=== PATIENT | male | born 1950 | race Caucasian/White ===

== ENCOUNTER 2020-09-15 11:44 | Inpatient (IN) | payer MEDICARE, OTHER ==
[~2020-09-15] VITALS: Ht 182.9 cm; Wt 164.2 kg
[~2020-09-15 11:44] MED LIST: ACTOS30 MG PO; BACTRIM DS TAB1 EACH PO; BYSTOLIC10 MG PO; CLINDAMYCIN HC150 MG PO; DIOVAN HCT 3201 EACH PO; GLIMEPIRIDE4 MG PO; GLIPIZIDE5 MG; KOMBIGLYZE XR1 EAC2 PO; LEVP SQ; PEPCID20 MG PO; WARFARIN SODIUM10 MG PO; WARFARIN SODIUM5 MG PO; ZOCOR20 MG PO
[2020-09-15] MEDS ORDERED: ASPIRIN 81 MG CHEW TAB PO ONE (12:30)
[2020-09-15 12:47] LABS: BASOPHILS % 0.2 % (0.0-1.0); EOSINOPHILS % 0.1 % (0.0-6.0); HEMATOCRIT 41.7 % (38.2-49.6); HEMOGLOBIN 14.1 g/dL (14.0-18.0); LYMPHOCYTES # (AUTO) 0.7 (1.0-3.2); LYMPHOCYTES % 3.4 % (18.0-39.1); MEAN CORPUSCULAR HEMOGLOBIN 30.3 pg (28-32); MEAN CORPUSCULAR HGB CONC 33.8 g/dL (31-35); MEAN CORPUSCULAR VOLUME 89.7 fL (81-99); MONOCYTES # (AUTO) 1.9 (0.2-0.8); MONOCYTES % 9.8 % (4.4-11.3); NEUTROPHILS # (AUTO) 16.7 (2.1-6.9); NEUTROPHILS % 85.7 % (38.7-80.0); PLATELET COUNT 136 x10e3/uL (140-360); RED BLOOD COUNT 4.65 x10e6/uL (4.3-5.7)
[2020-09-15 13:08] LABS: ALANINE AMINOTRANSFERASE 75 IU/L (0-55); ALBUMIN 2.7 g/dL (3.5-5.0); ALBUMIN/GLOBULIN RATIO 0.6 (0.8-2.0); ALKALINE PHOSPHATASE 194 IU/L (40-150); ANION GAP 17.5 mmol/L (8-16); BLOOD UREA NITROGEN 23 mg/dL (7-26); BUN/CREATININE RATIO 19 (6-25); CALCIUM 8.8 mg/dL (8.4-10.2); CARBON DIOXIDE 28 mmol/L (22-29); CHLORIDE 96 mmol/L (98-107); CREATINE KINASE 14 IU/L (30-200); CREATININE, SERUM 1.18 mg/dL (0.72-1.25); EST GLOMERULAR FILTRATION RATE > 60 ML/MIN (60-); GLUCOSE 304 mg/dL (74-118); POTASSIUM 3.5 mmol/L (3.5-5.1); SODIUM 138 mmol/L (136-145)
[2020-09-15] MEDS ORDERED: IOPAMIDOL 370 MG/ML 200 ML INFUS..BTL INJ ONE (13:56)
[2020-09-15] MEDS ORDERED: SODIUM CHLORIDE 0.9% 50ML 50 ML ONE ×2 (13:56→23:53)
[2020-09-15] MEDS ORDERED: ONDANSETRON HCL INJ 2MG/ML 2ML 2 MG/ML VIAL IV PRN (15:30)
[2020-09-15] MEDS ORDERED: MORPHINE SULFATE INJ 4 MG/ML INJ 1ML IV PRN (15:30)
[2020-09-15] MEDS ORDERED: MORPHINE SULFATE INJ 2 MG/ML SYR IV PRN (15:30)
[2020-09-15] MEDS: PIPERACILLIN/TAZOBAC 3.375 GM in SODIUM CHLORIDE 0.9% 50ML 50 ML IV SCH ×2 (16:29→23:43)
[2020-09-15] MEDS: SODIUM CHLORIDE 0.9% 1000ML 1,000 ML IV SCH ×2 (16:29→19:58)
[2020-09-15] MEDS ORDERED: DORZOLAMIDE HCL10 ML OP (17:07)
[2020-09-15] MEDS ORDERED: BRIMONIDINE TART5 ML OP (17:07)
[2020-09-15] MEDS ORDERED: TERBINAFINE HC250 MG PO (17:07)
[2020-09-15] MEDS ORDERED: XARELTO20 MG PO (17:07)
[2020-09-15] MEDS ORDERED: ATORVASTATIN CA20 MG PO (17:07)
[2020-09-15] MEDS ORDERED: LATANOPROST2.5 ML OP (17:07)
[2020-09-15] MEDS ORDERED: ALOGLIPTIN25 MG PO (17:07)
[2020-09-15] MEDS ORDERED: TRIAMCINOLONE A15 G1 TOP (17:07)
[2020-09-15 18:36] VITALS: BP 111/65
[2020-09-15 20:00] VITALS: BP 122/61
[2020-09-15] MEDS ORDERED: PIPERACILLIN/TAZOBAC 3.375 GM VIAL ONE (23:52)
[2020-09-16] VITALS (7 sets, daily range): BP systolic 121–153; BP diastolic 63–71
[2020-09-16] MEDS: SODIUM CHLORIDE 0.9% 1000ML 1,000 ML IV SCH ×3 (03:35→22:39)
[2020-09-16] MEDS: PIPERACILLIN/TAZOBAC 3.375 GM in SODIUM CHLORIDE 0.9% 50ML 50 ML IV SCH ×4 (05:45→23:55)
[2020-09-16] MEDS ORDERED: PIPERACILLIN/TAZOBAC 3.375 GM VIAL ONE ×4 (05:54→20:23)
[2020-09-16] MEDS ORDERED: SODIUM CHLORIDE 0.9% 50ML 50 ML ONE ×4 (05:54→20:24)
[2020-09-16 06:06] LABS: BASOPHILS % 0.2 % (0.0-1.0); EOSINOPHILS % 0.3 % (0.0-6.0); HEMATOCRIT 36.5 % (38.2-49.6); HEMOGLOBIN 12.3 g/dL (14.0-18.0); LYMPHOCYTES # (AUTO) 1.1 (1.0-3.2); LYMPHOCYTES % 7.1 % (18.0-39.1); MEAN CORPUSCULAR HEMOGLOBIN 30.1 pg (28-32); MEAN CORPUSCULAR HGB CONC 33.7 g/dL (31-35); MEAN CORPUSCULAR VOLUME 89.5 fL (81-99); MONOCYTES # (AUTO) 1.5 (0.2-0.8); MONOCYTES % 9.5 % (4.4-11.3); PLATELET COUNT 141 x10e3/uL (140-360); RED BLOOD COUNT 4.08 x10e6/uL (4.3-5.7)
[2020-09-16 06:28] LABS: ALANINE AMINOTRANSFERASE 56 IU/L (0-55); ALBUMIN 2.3 g/dL (3.5-5.0); ALBUMIN/GLOBULIN RATIO 0.6 (0.8-2.0); ALKALINE PHOSPHATASE 149 IU/L (40-150); ANION GAP 12.7 mmol/L (8-16); BLOOD UREA NITROGEN 25 mg/dL (7-26); BUN/CREATININE RATIO 22 (6-25); CALCIUM 8.2 mg/dL (8.4-10.2); CARBON DIOXIDE 30 mmol/L (22-29); CHLORIDE 99 mmol/L (98-107); CREATININE, SERUM 1.12 mg/dL (0.72-1.25); EST GLOMERULAR FILTRATION RATE > 60 ML/MIN (60-); GLUCOSE 170 mg/dL (74-118); POTASSIUM 3.7 mmol/L (3.5-5.1); SODIUM 138 mmol/L (136-145)
[2020-09-16 07:45] LABS: CHOL/HDL RATIO 6.6 (3.9-4.7)
[2020-09-16] MEDS: FAMOTIDINE 20 MG/2 ML VIAL IV SCH ×2 (09:33→16:45)
[2020-09-16] MEDS: BRIMONIDINE TARTRATE (OPTH) 5 ML LIQD OP SCH ×2 (09:38→16:45)
[2020-09-16] MEDS: DORZOLAMIDE HCL (OPTH) 10 ML BOTTLE OP SCH ×2 (09:38→16:45)
[2020-09-16 17:40] LABS: INR 2.84; PROTHROMBIN TIME 30.6 seconds (11.9-14.5)
[2020-09-16] MEDS: LATANOPROST(OPTH) 2.5 ML BTL OP SCH (21:00)
[2020-09-17] VITALS (8 sets, daily range): BP systolic 133–162; BP diastolic 56–85
[2020-09-17] MEDS ORDERED: SODIUM CHLORIDE 0.9% 50ML 50 ML ONE ×3 (03:28→17:37)
[2020-09-17] MEDS: PIPERACILLIN/TAZOBAC 3.375 GM in SODIUM CHLORIDE 0.9% 50ML 50 ML IV SCH ×3 (05:49→17:44)
[2020-09-17] MEDS ORDERED: PIPERACILLIN/TAZOBAC 3.375 GM VIAL ONE ×3 (06:06→17:36)
[2020-09-17] MEDS: SODIUM CHLORIDE 0.9% 1000ML 1,000 ML IV SCH ×3 (07:30→23:30)
[2020-09-17 07:43] LABS: INR 2.04; PROTHROMBIN TIME 23.8 seconds (11.9-14.5)
[2020-09-17] MEDS: DORZOLAMIDE HCL (OPTH) 10 ML BOTTLE OP SCH ×2 (09:43→17:44)
[2020-09-17] MEDS: FAMOTIDINE 20 MG/2 ML VIAL IV SCH ×2 (09:43→17:44)
[2020-09-17] MEDS: BRIMONIDINE TARTRATE (OPTH) 5 ML LIQD OP SCH ×2 (09:43→17:44)
[2020-09-17] MEDS: LATANOPROST(OPTH) 2.5 ML BTL OP SCH (21:00)
[2020-09-18] VITALS (8 sets, daily range): BP systolic 140–157; BP diastolic 67–97
[2020-09-18 00:50] LABS: CLARITY,URINE CLEAR (CLEAR); COLOR,URINE AMBER (YELLOW); KETONES,URINE 2+ (NEGATIVE); LEUKOCYTE ESTERASE ,URINE NEGATIVE (NEGATIVE); NITRITE,URINE NEGATIVE (NEGATIVE); PROTEIN,URINE DIPSTICK TRACE (NEGATIVE); URINE UROBILINOGEN 0.2 mg/dL (0.2 - 1)
[2020-09-18 00:57] LABS: BACTERIA,URINE FEW /HPF; EPITHELIAL CELLS,URINE MODERATE /LPF; RBC,URINE 0-5 /HPF (0-5); WBC,URINE (MAN) 0-5 /HPF (0-5)
[2020-09-18] MEDS ORDERED: PIPERACILLIN/TAZOBAC 3.375 GM VIAL ONE ×3 (05:01→17:23)
[2020-09-18] MEDS ORDERED: SODIUM CHLORIDE 0.9% 50ML 50 ML ONE ×3 (05:03→17:24)
[2020-09-18] MEDS: PIPERACILLIN/TAZOBAC 3.375 GM in SODIUM CHLORIDE 0.9% 50ML 50 ML IV SCH ×5 (05:53→17:18)
[2020-09-18 06:52] LABS: INR 2.06
[2020-09-18] MEDS: SODIUM CHLORIDE 0.9% 1000ML 1,000 ML IV SCH ×2 (07:30→17:18)
[2020-09-18] MEDS: FAMOTIDINE 20 MG/2 ML VIAL IV SCH ×2 (08:25→15:55)
[2020-09-18] MEDS: BRIMONIDINE TARTRATE (OPTH) 5 ML LIQD OP SCH ×2 (08:30→15:56)
[2020-09-18] MEDS: DORZOLAMIDE HCL (OPTH) 10 ML BOTTLE OP SCH ×2 (08:30→15:56)
[2020-09-18] MEDS ORDERED: DEXTROSE 50% SYRINGE 50 ML IV PRN (17:45)
[2020-09-18] MEDS ORDERED: FLAGYL500 MG PO (18:54)
[2020-09-18] MEDS ORDERED: PEPCID20 MG PO (18:54)
[2020-09-18] MEDS ORDERED: ZOFRAN4 MG PO (18:55)
[2020-09-18] MEDS ORDERED: INSULIN LISPRO 100 UNIT/1 ML 3ML VIAL SQ SCH (21:00)
== END 2020-09-18 21:24 | disposition home or self-care (01) | DRG 445 ==
LOC: ER 12:48 → ERHOLD 15:23 → MED/SURG3 18:00
PROVIDERS: ADMIT Internal Medicine; ATTEND Internal Medicine
PROC: 30233K1 Transfusion of Nonautologous Frozen Plasma into Peripheral Vein, Percutaneous Approach (ICD-10-PCS; principal; 2020-09-17)
DX: K81.0 Acute cholecystitis (principal); Z68.42 Body mass index [BMI] 45.0-49.9, adult; E11.9 Type 2 diabetes mellitus without complications; E66.01 Morbid (severe) obesity due to excess calories; Z86.711 Personal history of pulmonary embolism; Z79.01 Long term (current) use of anticoagulants; I10 Essential (primary) hypertension
CPT/HCPCS: 36415; 71045; 74177; 80053; 80061; 81001; 82550; 82553; 82948; 83036; 83605; 83880; 84484; 85025; 85610; 86850; 86900; 87040; 93005; 99284; J2270; J2405; J2543; J7030; P9017; Q9967; U0002

== ENCOUNTER 2020-09-25 11:32 | Inpatient (IN) | payer MEDICARE ==
[2020-09-23 11:20] LABS: BASOPHILS % 0.2 % (0.0-1.0); EOSINOPHILS # (AUTO) 0.1 (0.0-0.4); EOSINOPHILS % 1.1 % (0.0-6.0); HEMATOCRIT 41.5 % (38.2-49.6); HEMOGLOBIN 13.3 g/dL (14.0-18.0); LYMPHOCYTES # (AUTO) 1.5 (1.0-3.2); LYMPHOCYTES % 17.9 % (18.0-39.1); MEAN CORPUSCULAR HEMOGLOBIN 29.7 pg (28-32); MEAN CORPUSCULAR VOLUME 92.6 fL (81-99); MONOCYTES # (AUTO) 0.7 (0.2-0.8); NEUTROPHILS # (AUTO) 5.9 (2.1-6.9); NEUTROPHILS % 71.8 % (38.7-80.0); PLATELET COUNT 210 x10e3/uL (140-360); RED BLOOD COUNT 4.48 x10e6/uL (4.3-5.7); RED CELL DISTRIBUTION WIDTH 13.9 % (11.7-14.4)
[2020-09-23 11:35] LABS: INR 0.96; PROTHROMBIN TIME 13.4 seconds (11.9-14.5)
[2020-09-23 11:43] LABS: ALANINE AMINOTRANSFERASE 81 IU/L (0-55); ALBUMIN 3.1 g/dL (3.5-5.0); ALBUMIN/GLOBULIN RATIO 0.8 (0.8-2.0); ALKALINE PHOSPHATASE 117 IU/L (40-150); ANION GAP 13.3 mmol/L (8-16); BLOOD UREA NITROGEN 13 mg/dL (7-26); BUN/CREATININE RATIO 12 (6-25); CARBON DIOXIDE 27 mmol/L (22-29); CHLORIDE 104 mmol/L (98-107); CREATININE, SERUM 1.05 mg/dL (0.72-1.25); EST GLOMERULAR FILTRATION RATE > 60 ML/MIN (60-); GLUCOSE 200 mg/dL (74-118); POTASSIUM 4.3 mmol/L (3.5-5.1); SODIUM 140 mmol/L (136-145)
[~2020-09-25] VITALS: Ht 182.9 cm; Wt 135.2 kg
[~2020-09-25 11:32] MED LIST changes: +ALOGLIPTIN25 MG PO; +ATORVASTATIN CA20 MG PO; +BRIMONIDINE TART5 ML OP; +DORZOLAMIDE HCL10 ML OP; +FLAGYL500 MG PO; +LATANOPROST2.5 ML OP; +TERBINAFINE HC250 MG PO; +TRIAMCINOLONE A15 G1 TOP; +XARELTO20 MG PO; +ZOFRAN4 MG PO
[2020-09-25] MEDS ORDERED: CEFOXITIN 1GM/0.9% NS 50ML 100 ML IV ONE (11:54)
[2020-09-25] MEDS ORDERED: CYMBALTA20 MG PO (12:09)
[2020-09-25] MEDS ORDERED: ONDANSETRON HCL INJ 2MG/ML 2ML 2 MG/ML VIAL ONE (12:47)
[2020-09-25] MEDS ORDERED: NEOSTIGMINE 1 MG/ML 10ML VIAL ONE (12:47)
[2020-09-25] MEDS ORDERED: DEXAMETHASONE SOD PHOS INJ 4 MG/ML VIAL ONE (12:47)
[2020-09-25] MEDS ORDERED: LIDOCAINE HCL 2% LOCAL INJ 5 ML SDV VIAL INJ ONE (12:47)
[2020-09-25] MEDS ORDERED: PROPOFOL IV EMULSION 10 MG/ML 20 ML VIAL ONE (12:47)
[2020-09-25] MEDS ORDERED: SEVOFLURANE INHAL SOLN 250 ML PEN BTL ONE (12:47)
[2020-09-25] MEDS ORDERED: GLYCOPYRROLATE INJ 0.2 MG/ML VIAL ONE (12:47)
[2020-09-25] MEDS ORDERED: MIDAZOLAM HCL 2 MG/2 ML VIAL ONE (13:27)
[2020-09-25] MEDS ORDERED: FENTANYL CITRATE/PF 100MCG/2 ML INJ ONE ×2 (13:27→17:07)
[2020-09-25] MEDS ORDERED: BUPIVACAINE 0.25% 30ML SDV ONE (13:37)
[2020-09-25] MEDS ORDERED: ONDANSETRON HCL INJ 2MG/ML 2ML 2 MG/ML VIAL IV PRN (16:30)
[2020-09-25] MEDS ORDERED: HYDRALAZINE HCL 20 MG/ML VIAL ONE (17:00)
[2020-09-25] MEDS: HYDROMORPHONE 1MG/1ML INJ IV PRN ×2 (17:48→23:50)
[2020-09-25] MEDS ORDERED: BACTRIM DS TAB1 EACH PO (17:58)
[2020-09-25 18:23] VITALS: BP 132/67
[2020-09-25 18:24] VITALS: BP 132/67
[2020-09-25] MEDS ORDERED: DEXTROSE 50% SYRINGE 50 ML IV PRN (18:30)
[2020-09-25] MEDS: LACTATED RINGER'S 1,000 ML INJ SCH (18:38)
[2020-09-25] MEDS: AMPICILLIN SOD/SULBACTAM 3GM 100 ML IV SCH (18:49)
[2020-09-25 21:00] VITALS: BP 143/82
[2020-09-25] MEDS: INSULIN REGULAR, HUMAN 100 UNIT/1 ML 3ML VIAL SQ SCH (21:00)
[2020-09-26] VITALS (8 sets, daily range): BP systolic 125–153; BP diastolic 55–74
[2020-09-26] MEDS: LACTATED RINGER'S 1,000 ML INJ SCH ×3 (03:15→23:09)
[2020-09-26] MEDS: HYDROMORPHONE 1MG/1ML INJ IV PRN ×3 (05:04→20:57)
[2020-09-26 05:12] LABS: BASOPHILS % 0.2 % (0.0-1.0); HEMATOCRIT 39.7 % (38.2-49.6); LYMPHOCYTES # (AUTO) 1.1 (1.0-3.2); LYMPHOCYTES % 5.4 % (18.0-39.1); MEAN CORPUSCULAR HEMOGLOBIN 30.4 pg (28-32); MEAN CORPUSCULAR HGB CONC 32.7 g/dL (31-35); MONOCYTES # (AUTO) 1.1 (0.2-0.8); MONOCYTES % 5.4 % (4.4-11.3); NEUTROPHILS # (AUTO) 17.4 (2.1-6.9); NEUTROPHILS % 88.6 % (38.7-80.0); PLATELET COUNT 179 x10e3/uL (140-360); RED BLOOD COUNT 4.27 x10e6/uL (4.3-5.7); RED CELL DISTRIBUTION WIDTH 14.1 % (11.7-14.4)
[2020-09-26 05:35] LABS: ALANINE AMINOTRANSFERASE 48 IU/L (0-55); ALBUMIN 2.9 g/dL (3.5-5.0); ALBUMIN/GLOBULIN RATIO 0.9 (0.8-2.0); ALKALINE PHOSPHATASE 103 IU/L (40-150); ANION GAP 17.9 mmol/L (8-16); BLOOD UREA NITROGEN 14 mg/dL (7-26); BUN/CREATININE RATIO 14 (6-25); CALCIUM 8.1 mg/dL (8.4-10.2); CARBON DIOXIDE 24 mmol/L (22-29); CHLORIDE 102 mmol/L (98-107); CREATININE, SERUM 1.01 mg/dL (0.72-1.25); EST GLOMERULAR FILTRATION RATE > 60 ML/MIN (60-); GLUCOSE 245 mg/dL (74-118); POTASSIUM 4.9 mmol/L (3.5-5.1); SODIUM 139 mmol/L (136-145)
[2020-09-26] MEDS: AMPICILLIN SOD/SULBACTAM 3GM 100 ML IV SCH ×4 (06:00→17:11)
[2020-09-26] MEDS: INSULIN REGULAR, HUMAN 100 UNIT/1 ML 3ML VIAL SQ SCH ×4 (09:22→20:58)
[2020-09-27] VITALS: BP 153/78
[2020-09-27 04:00] VITALS: BP 154/79
[2020-09-27] MEDS: HYDROMORPHONE 1MG/1ML INJ IV PRN (04:51)
[2020-09-27] MEDS: AMPICILLIN SOD/SULBACTAM 3GM 100 ML IV SCH ×3 (06:00→12:00)
[2020-09-27] MEDS: INSULIN REGULAR, HUMAN 100 UNIT/1 ML 3ML VIAL SQ SCH ×2 (07:30→11:30)
[2020-09-27 08:00] VITALS: BP 160/94
[2020-09-27 08:56] VITALS: BP 154/79
[2020-09-27] MEDS: LACTATED RINGER'S 1,000 ML INJ SCH (09:49)
[2020-09-27] MEDS ORDERED: METOPROLOL TARTRATE 25 MG TAB PO SCH (11:15)
[2020-09-27 12:15] VITALS: BP 165/79
[2020-09-27 13:00] VITALS: BP 165/79
[2020-09-27] MEDS ORDERED: ULTRAM50 MG PO (15:35)
== END 2020-09-27 16:20 | disposition home or self-care (01) | DRG 418 ==
LOC: OR 11:32 → PACU V 16:44 → IMCU 17:25 → OBSVTOIN 09-26 09:18
PROVIDERS: ADMIT Surgery; ATTEND Surgery
PROC: 0FT44ZZ Resection of Gallbladder, Percutaneous Endoscopic Approach (ICD-10-PCS; principal; 2020-09-25 13:30)
DX: K80.00 Calculus of gallbladder with acute cholecystitis without obstruction (principal); Z68.41 Body mass index [BMI] 40.0-44.9, adult; K82.A1 Gangrene of gallbladder in cholecystitis; I10 Essential (primary) hypertension; E66.01 Morbid (severe) obesity due to excess calories; E11.9 Type 2 diabetes mellitus without complications; Z79.4 Long term (current) use of insulin; Z20.822 Contact with and (suspected) exposure to COVID-19
CPT/HCPCS: 36415; 80053; 82948; 83036; 85025; 85610; 88304; G0378; J0295; J0360; J1100; J1170; J1817; J2001; J2250; J2405; J2710; J3010; J7121; U0002

== ENCOUNTER 2022-11-13 16:16 | Emergency (ER) | payer MEDICARE, OTHER ==
[~2022-11-13] VITALS: Ht 182.9 cm; Wt 135.2 kg
[~2022-11-13 16:16] MED LIST changes: +CYMBALTA20 MG PO; +ULTRAM50 MG PO
[2022-11-13 18:45] VITALS: BP 139/86; PULSE 81; RESP 18; O2SAT 99
== END 2022-11-13 18:46 | disposition home or self-care (01) ==
LOC: ER 16:25
DX: S00.511A Abrasion of lip, initial encounter (principal); S63.252A Unspecified dislocation of right middle finger, initial encounter; I10 Essential (primary) hypertension; E11.9 Type 2 diabetes mellitus without complications; E78.5 Hyperlipidemia, unspecified; W01.0XXA Fall on same level from slipping, tripping and stumbling without subsequent striking against object, initial encounter; Y92.008 Other place in unspecified non-institutional (private) residence as the place of occurrence of the external cause; Z79.84 Long term (current) use of oral hypoglycemic drugs; Z79.02 Long term (current) use of antithrombotics/antiplatelets; Z79.899 Other long term (current) drug therapy
CPT/HCPCS: 70450; 72125; 99283

== ENCOUNTER 2024-07-21 11:36 | Emergency (ER) | payer MEDICARE ==
[~2024-07-21] VITALS: Ht 182.9 cm; Wt 126.6 kg
[2024-07-21 11:41] VITALS: PULSE 79; RESP 15; TEMP 98.1
[2024-07-21 13:24] LABS: BASOPHILS % 0.3 % (0.0-1.0); EOSINOPHILS # (AUTO) 0.2 (0.0-0.4); EOSINOPHILS % 2.6 % (0.0-6.0); HEMATOCRIT 40.3 % (38.2-49.6); HEMOGLOBIN 13.2 g/dL (14.0-18.0); LYMPHOCYTES # (AUTO) 1.5 (1.0-3.2); LYMPHOCYTES % 19.8 % (18.0-39.1); MEAN CORPUSCULAR HEMOGLOBIN 30.7 pg (28-32); MEAN CORPUSCULAR HGB CONC 32.8 g/dL (31-35); MEAN CORPUSCULAR VOLUME 93.7 fL (81-99); MONOCYTES # (AUTO) 0.6 (0.2-0.8); MONOCYTES % 7.8 % (4.4-11.3); NEUTROPHILS # (AUTO) 5.2 (2.1-6.9); NEUTROPHILS % 69.1 % (38.7-80.0); PLATELET COUNT 111 x10e3/uL (140-360); RED CELL DISTRIBUTION WIDTH 13.5 % (11.7-14.4); WHITE BLOOD COUNT 7.44 x10e3/uL (4.8-10.8)
[2024-07-21 13:37] LABS: PROTHROMBIN TIME 23.7 seconds (11.9-14.5)
[2024-07-21 13:38] LABS: PARTIAL THROMBOPLASTIN TIME 42.1 seconds (23.8-35.5)
[2024-07-21 13:43] LABS: ALANINE AMINOTRANSFERASE 9 IU/L (0-55); ALBUMIN 3.8 g/dL (3.5-5.0); ALBUMIN/GLOBULIN RATIO 1.3 (0.8-2.0); ALKALINE PHOSPHATASE 106 IU/L (40-150); ANION GAP 14.8 mmol/L (8-16); BILIRUBIN,TOTAL 0.7 mg/dL (0.2-1.2); BLOOD UREA NITROGEN 13 mg/dL (7-26); BUN/CREATININE RATIO 13 (6-25); CALCIUM 8.8 mg/dL (8.4-10.2); CARBON DIOXIDE 25 mmol/L (22-29); CHLORIDE 101 mmol/L (98-107); CREATINE KINASE 25 IU/L (30-200); CREATININE, SERUM 1.02 mg/dL (0.72-1.25); EST GLOMERULAR FILTRATION RATE 77 ML/MIN (>=60); GLUCOSE 277 mg/dL (74-118); POTASSIUM 3.8 mmol/L (3.5-5.1); SODIUM 137 mmol/L (136-145); TOTAL PROTEIN 6.7 g/dL (6.5-8.1)
[2024-07-21 13:45] LABS: ACETAMINOPHEN < 3.0 ug/mL (10-30); ETHANOL < 10.0 mg/dL (0.0-10.0); SALICYLATE < 5.0 mg/dL (0-30)
[2024-07-21 14:00] LABS: TROPONIN I < 0.001 ng/mL (0-0.300)
[2024-07-21 15:19] LABS: AMPHETAMINES SCREEN,URINE NEGATIVE (NEGATIVE); BENZODIAZEPINES SCREEN,URINE NEGATIVE (NEGATIVE); CANNABINOIDS SCREEN,URINE NEGATIVE (NEGATIVE); CLARITY,URINE HAZY (CLEAR); COCAINE SCREEN,URINE NEGATIVE (NEGATIVE); COLOR,URINE YELLOW (YELLOW); GLUCOSE, URINE >=1000 (NEGATIVE); KETONES,URINE TRACE (NEGATIVE); LEUKOCYTE ESTERASE ,URINE NEGATIVE (NEGATIVE); METHADONE SCREEN, URINE NEGATIVE (NEGATIVE); NITRITE,URINE NEGATIVE (NEGATIVE); OPIATES SCREEN,URINE NEGATIVE (NEGATIVE); PH,URINE 7 (5 - 7); PHENCYCLIDINE SCREEN,URINE NEGATIVE (NEGATIVE); PROTEIN,URINE DIPSTICK 1+ (NEGATIVE); URINE UROBILINOGEN 0.2 mg/dL (0.2 - 1)
[2024-07-21 15:20] LABS: BACTERIA,URINE FEW /HPF; BILIRUBIN,URINE NEGATIVE (NEGATIVE); EPITHELIAL CELLS,URINE FEW /LPF; RBC,URINE 0-5 /HPF (0-5); WBC,URINE (MAN) 0-5 /HPF (0-5)
[2024-07-21 16:39] VITALS: BP 145/85; PULSE 84; RESP 17; TEMP 97.8; O2SAT 98
== END 2024-07-21 16:41 | disposition home or self-care (01) ==
LOC: ER 12:00
DX: R41.0 Disorientation, unspecified (principal); W18.30XA Fall on same level, unspecified, initial encounter; E11.65 Type 2 diabetes mellitus with hyperglycemia; I10 Essential (primary) hypertension; E78.5 Hyperlipidemia, unspecified; I69.354 Hemiplegia and hemiparesis following cerebral infarction affecting left non-dominant side; Z86.718 Personal history of other venous thrombosis and embolism
CPT/HCPCS: 36415; 70450; 71045; 80053; 80307; 80320; 80329; 81001; 82550; 84484; 85025; 85610; 85730; 93005; 99284